=== PATIENT | male | born 1965 | race Asian ===

== ENCOUNTER 2020-10-19 03:24 | Observation (INO) | payer BC ==
[~2020-10-19] VITALS: Ht 175.3 cm; Wt 91.2 kg
[2020-10-19] VITALS (9 sets, daily range): BP systolic 95–117; BP diastolic 68–88; TEMP 97.6–98.6; Ht 175.3 cm; Wt 91.2 kg
[2020-10-19 04:17] LABS: PLATELET COUNT 188 K/uL (142-355)
[2020-10-19 04:18] LABS: POTASSIUM 2.9 mmol/L (3.6-5.2); SODIUM 140 mmol/L (136-145)
[2020-10-19 05:52] LABS: PARTIAL THROMBOPLASTIN TIME 21.6 SECONDS (24.5-33.6)
[2020-10-19] MEDS ORDERED: CRESTOR20 MG PO (11:49)
[2020-10-19] MEDS ORDERED: COZAAR100 MG PO (11:49)
[2020-10-19] MEDS ORDERED: HYDROCHLOROT12.5 M1 PO (11:50)
== END 2020-10-19 21:35 | disposition short-term general hospital (02) ==
LOC: ED 03:43 → MED/SURG 05:00
PROVIDERS: ADMIT Hospitalist; ATTEND Internal Medicine
DX: R07.89 Other chest pain (principal); I10 Essential (primary) hypertension; R55 Syncope and collapse; E87.6 Hypokalemia; N39.0 Urinary tract infection, site not specified
CPT/HCPCS: 80053; 80307; 80320; 81000; 82550; 83880; 84484; 85007; 85027; 85610; 85730; 87077; 87086; 87088; 87186; 87635; 93005; 96360; 96361; 96365; 96372; 96374; 96375; 99220; 99284; G0378; J1650; J1956; J2405; U0003